=== PATIENT | female | born 1970 | race Caucasian/White ===

== ENCOUNTER 2023-02-03 08:28 | Observation (INO) | payer BC, OTHER ==
[2023-02-03 09:30] LABS: Absolute Neutrophil Ct (ANC) 10.67 x10^3/uL (1.4-6.9); BASOPHIL % 0.3 % (0.0-0.4); Basophil (Absolute #) 0.04 x10^3/uL (0-0.4); Eosinophil % 0.1 % (0.00-5.0); Eosinophil (Absolute #) 0.01 x10^3/uL (0-0.5); Hematocrit 45.3 % (35-47); Hemoglobin 14.6 g/dL (12.0-16.0); IMMATURE GRAN # 0.05 x10^3u/L (0.00-0.03); IMMATURE GRAN % 0.4 % (0.00-0.4); Lymphocyte (Absolute #) 1.08 x10^3/uL (1.0-4.6); Lymphocytes % 8.5 % (24.0-44.0); Mean Cell Volume 86.8 fL (78-100); Mean Corpuscular Hgb Concent. 32.2 g/dL (32-36); Mean Platelet Volume 9.4 fL (7.5-11.0); Monocyte (Absolute #) 0.88 x10^3/uL (0.0-1.3); Monocytes % 6.9 % (0.0-12.0); Neutrophil % 83.8 % (36.0-66.0); Platelet Count 268 x10^3/uL (150-450); Red Blood Count 5.22 x10^6/uL (4.1-5.4); Red Cell Distribution Width 13.2 % (11.5-14.0); White Blood Count 12.7 x10^3/uL (4.0-10.5)
[2023-02-03] MEDS: Sodium Chloride 0.9% 1000 ML 1,000 ML IV SCH (09:33)
--- NOTE | 2023-02-03 09:36 | ERPHSYRPT ---
- History of Present Illness Time Seen by Provider: 02/03/23 08:45 Source: patient Exam Limitations: no limitations Patient Subjective Stated Complaint: Pt states "About 230 this morning both sides of my face became numb and I felt like my tongue is swelling. I am not in pain, I am not havnig any problems breathing. My voice is a little hoarse as well." Triage Nursing Assessment: Pt presented alert and oriented X3, skin pwd. Pt ambulates with an upright steady gait. Pt able to speak in clear full sentences. PT stated she has a sore throat as well. Physician History: Patient is a 52-year-old female presents to the emergency department for evaluation of facial numbness. Symptoms started right around 230 this morning. Patient states her symptoms were associated with a sensation of tongue swelling. Patient states her symptoms have significantly improved since her arrival to our ED. No focal or lateralizing symptoms otherwise. No weakness. Patient admits to a slight sore throat and hoarse voice. No sick contacts. No fever. Symptoms are constant. Symptoms are moderate in intensity. No specific wor sening or improving factors. Patient otherwise feels well. Patient states she has no significant past medical history although she has not followed up with her primary care doctor in 4 years or so. at bedside. They voiced no other complaints or concerns at this time. Portions of this note were created with voice recognition technology. There may be grammatical, spelling, punctuation or sound alike errors Timing/Duration: today Severity: moderate Modifying Factors: Improves With: nothing Associated Symptoms: other (Sore throat) Allergies/Adverse Reactions: neomycin Allergy (Severe, Verified 02/03/23 08:42) inflamation Home Medications: No Reportable Medications [No Reported Medications] 02/03/23 [History] Hx Tetanus, Diphtheria Vaccination/Date Given: Yes Hx Influenza Vaccination/Date Given: No Hx Pneumococcal Vaccination/Date Given: No Immunizations Up to Date: No Travel Risk - International Travel Have you traveled outside of the country in past 3 weeks: No - Coronavirus Screening Are you exhibiting any of the following symptoms?: No Close contact with a COVID-19 positive Pt in past 14-21 Days: No - Vaccine Status Have you recieved a Covid-19 vaccination: No - Review of Systems Constitutional: No Symptoms, No Fever, No Chills Eyes: No Symptoms Ears, Nose, & Throat: No Symptoms Respiratory: No Symptoms, No Cough, No Dyspnea Cardiac: No Symptoms, No Chest Pain, No Edema, No Syncope Abdominal/Gastrointestinal: No Symptoms, No Abdominal Pain, No Nausea, No Vomiting, No Diarrhea Genitourinary Symptoms: No Symptoms, No Dysuria Musculoskeletal: No Symptoms, No Back Pain, No Neck Pain Skin: No Symptoms, No Rash Neurological: No Symptoms, No Dizziness, No Focal Weakness, No Sensory Changes Psychological: No Symptoms Endocrine: No Symptoms Hematologic/Lymphatic: No Symptoms Immunological/Allergic: No Symptoms All Other Systems: Reviewed and Negative - Past Medical History Pertinent Past Medical History: No - Past Surgical History Past Surgical History: Yes Other Surgical History: facial surgery. right knee - Social History Smoking Status: Never smoker Exposure to second hand smoke: No Drug Use: none Patient Lives Alone: No - Nursing Vital Signs Nursing Vital Signs: Initial Vital Signs Temperature 97.1 F 02/03/23 08:34 Pulse Rate 83 02/03/23 08:34 Respiratory Rate 20 02/03/23 08:34 Blood Pressure 203/93 02/03/23 08:34 O2 Sat by Pulse Oximetry 100 02/03/23 08:34 Pain Scale Pain Intensity 0 - Physical Exam General Appearance: no apparent distress, alert Eye Exam: PERRL/EOMI, eyes nml inspection Ears, Nose, Throat Exam: normal ENT inspection, TMs normal, pharynx normal, moist mucous membranes Neck Exam: normal inspection, non-tender, supple, full range of motion Respiratory Exam: normal breath sounds, lungs clear, airway intact, No re spiratory distress Cardiovascular Exam: regular rate/rhythm, normal heart sounds, normal peripheral pulses Gastrointestinal/Abdomen Exam: soft, normal bowel sounds, No tenderness, No mass Back Exam: normal inspection, normal range of motion, No CVA tenderness, No vertebral tenderness Extremity Exam: normal inspection, normal range of motion, pelvis stable Neurologic Exam: alert, oriented x 3, cooperative, normal mood/affect, nml cerebellar function, nml station & gait, sensation nml, No motor deficits Skin Exam: normal color, warm, dry, No rash Lymphatic Exam: No adenopathy SpO2 Interpretation: normal SpO2: 100 O2 Delivery: Room Air - Course Nursing assessment & vital signs reviewed: Yes - CT Exams Head CT Interpretation: Tele-radiologist Report (No acute intracranial pathology observed.) Ordered Tests: Active Orders 24 hr Category Date Time Status Production Cloth Cutter STAT Care 02/03/23 09:16 Active IV Insertion STAT Care 02/03/23 09:15 Active Pulse Oximetry (ED) STAT Care 02/03/23 09:15 Active HEAD WITHOUT CONTRAST [CT] Stat Exams 02/03/23 09:16 Completed CBC W DIFF Stat Lab 02/03/23 09:30 Completed CMP Stat Lab 02/03/23 09:20 Completed HCG QUALITATIVE, URINE Stat Lab 02/03/23 Ordered TROPONIN Q4H Lab 02/03/23 09:30 Completed TROPONIN Q4H Lab 02/03/23 13:30 Ordered TROPONIN Q4H Lab 02/03/23 17:30 Ordered UA W/RFX UR CULTURE Stat Lab 02/03/23 10:58 Ordered Transfer Order Routine Transfer 02/03/23 Ordered Medication Summary Generic Name Dose Route Start Last Admin Trade Name Freq PRN Reason Stop Dose Admin Sodium Chloride 1,000 mls @ 100 mls/hr 02/03/23 09:30 02/03/23 09:33 Sodium Chloride 0.9% 1000 Ml IV 03/05/23 09:29 100 mls/hr .Q10H TUTU Administration Discontinued Medications Generic Name Dose Route Start Last Admin Trade Name Freq PRN Reason Stop Dose Admin Aspirin 324 mg 02/03/23 10:31 02/03/23 10:55 Aspirin 81 Mg Tab.Chew PO 02/03/23 10:32 324 mg STAT ONE Administration Aspirin Confirm 02/03/23 10:54 Aspirin 81 Mg Tab.Chew Administered 02/03/23 10:55 Dose 324 mg .ROUTE .STK-MED ONE Lab/Rad Data: Laboratory Result Diagrams 02/03/23 09:30 02/03/23 09:20 Laboratory Results 02/03/23 02/03/23 02/03/23 Range/Units 09:35 09:35 09:30 WBC (4.0-10.5) x10^3/uL RBC (4.1-5.4) x10^6/uL Hgb (12.0-16.0) g/dL Hct (35-47) % MCV (78-100) fL MCH (26-32) pg MCHC (32-36) g/dL RDW (11.5-14.0) % Plt Count (150-450) x10^3/uL MPV (7.5-11.0) fL Gran % (36.0-66.0) % Immature Gran % (Auto) (0.00-0.4) % Nucleat RBC Rel Count (0.00-0.1) % Eos # (Auto) (0-0.5) x10^3/uL Immature Gran # (Auto) (0.00-0.03) x10^3u/L Absolute Lymphs (auto) (1.0-4.6) x10^3/uL Absolute Monos (auto) (0.0-1.3) x10^3/uL Absolute Nucleated RBC (0.00-0.01) x10^3u/L Lymphocytes % (24.0-44.0) % Monocytes % (0.0-12.0) % Eosinophils % (0.00-5.0) % Basophils % (0.0-0.4) % Absolute Granulocytes (1.4-6.9) x10^3/uL Basophils # (0-0.4) x10^3/uL Sodium (137-145) mmol/L Potassium (3.5-5.1) mmol/L Chloride (98-107) mmol/L Carbon Dioxide (22-30) mmol/L Anion Gap (5-15) MEQ/L BUN (7-17) mg/dL Creatinine (0.52-1.04) mg/dL Estimated GFR ML/MIN Glucose (74-106) mg/dL Calcium (8.4-10.2) mg/dL Total Bilirubin (0.2-1.3) mg/dL AST (14-36) U/L ALT (0-35) U/L Alkaline Phosphatase (38-126) U/L Troponin I < 0.012 (0.000-0.034) ng/mL Serum Total Protein (6.3-8.2) g/dL Albumin (3.5-5.0) g/dL Influenza Type A Ag NEGATIVE (NEGATIVE) Influenza Type B Ag NEGATIVE (NEGATIVE) RSV (PCR) NEGATIVE (NEGATIVE) SARS-CoV-2 (PCR) NEGATIVE (NEGATIVE) Group A Strep Antibody NOT DETECTED (NEGATIVE) 02/03/23 02/03/23 Range/Units 09:30 09:20 WBC 12.7 H (4.0-10.5) x10^3/uL RBC 5.22 (4.1-5.4) x10^6/uL Hgb 14.6 (12.0-16.0) g/dL Hct 45.3 (35-47) % MCV 86.8 (78-100) fL MCH 28.0 (26-32) pg MCHC 32.2 (32-36) g/dL RDW 13.2 (11.5-14.0) % Plt Count 268 (150-450) x10^3/uL MPV 9.4 (7.5-11.0) fL Gran % 83.8 H (36.0-66.0) % Immature Gran % (Auto) 0.4 (0.00-0.4) % Nucleat RBC Rel Count 0.0 (0.00-0.1) % Eos # (Auto) 0.01 (0-0.5) x10^3/uL Immature Gran # (Auto) 0.05 H (0.00-0.03) x10^3u/L Absolute Lymphs (auto) 1.08 (1.0-4.6) x10^3/uL Absolute Monos (auto) 0.88 (0.0-1.3) x10^3/uL Absolute Nucleated RBC 0.00 (0.00-0.01) x10^3u/L Lymphocytes % 8.5 L (24.0-44.0) % Monocytes % 6.9 (0.0-12.0) % Eosinophils % 0.1 (0.00-5.0) % Basophils % 0.3 (0.0-0.4) % Absolute Granulocytes 10.67 H (1.4-6.9) x10^3/uL Basophils # 0.04 (0-0.4) x10^3/uL Sodium 135 L (137-145) mmol/L Potassium 4.0 (3.5-5.1) mmol/L Chloride 102 (98-107) mmol/L Carbon Dioxide 26 (22-30) mmol/L Anion Gap 10.9 (5-15) MEQ/L BUN 12 (7-17) mg/dL Creatinine 0.52 (0.52-1.04) mg/dL Estimated GFR 111.7 ML/MIN Glucose 114 H (74-106) mg/dL Calcium 9.3 (8.4-10.2) mg/dL Total Bilirubin 0.70 (0.2-1.3) mg/dL AST 23 (14-36) U/L ALT 20 (0-35) U/L Alkaline Phosphatase 83 (38-126) U/L Troponin I (0.000-0.034) ng/mL Serum Total Protein 7.7 (6.3-8.2) g/dL Albumin 4.3 (3.5-5.0) g/dL Influenza Type A Ag (NEGATIVE) Influenza Type B Ag (NEGATIVE) RSV (PCR) (NEGATIVE) SARS-CoV-2 (PCR) (NEGATIVE) Group A Strep Antibody (NEGATIVE) - Progress Progress: improved Progress Note: Case discussed with teleneurologist at 10:28 AM. He advises a full dose aspirin and admission for MRI brain with and without contrast. 02/03/23 10:31 Case discussed with at 10:[address] Ferrari accepts admission to observation. 02/03/23 10:55 52-year-old female presents emergency department for evaluation of facial numbness that started at approximately 2 AM. Symptoms gradually improved upon arrival. Possible TIA however stroke cannot be ruled out unless patient receives MRI. Physical exam nonremarkable. Patient evaluated by teleneurologist who advises admission for MRI. Teleneurologist also advised full dose aspirin which was administered. Patient reassessed. Symptoms have significantly improved almost completely resolved. We will admit for further evaluation and treatment. Patient voices no other complaints or concerns at this time. CT head was negative for acute intracranial pathology. CBC CMP no significant abnormalities observed. COVID test negative. Patient complained of a sore throat, rapid strep negative. Initial troponin negative. Urinalysis not available. Patient received a full dose aspirin and is currently receiving IV fluids as well. Complexity of problems addressed is moderate acute complicated No critical care time Complexity of data reviewed and analyzed is extensive. Test ordered test reviewed. Results analyzed and correlated clinically with history and physical examination. Management discussed with teleneurologist and hospitalist. Teleneurologist advises admission, MRI with and without contrast of brain and full dose aspirin. Hospitalist accepts admission to observation Risk of complication and or risk of morbidity/mortality of patient management is high. Patient requires hospitalization for further evaluation and treatment. Portions of this note were created with voice recognition technology. There may be grammatical, spelling, punctuation or sound alike errors Vital stable. Time spent admit patient approximately 15 minutes. Plan of care established for shared decision making. 02/03/23 11:15 02/03/23 11:18 Counseled pt/family regarding: lab results, diagnosis, rad results - Departure Departure Disposition: Observation Clinical Impression: Facial numbness, Hypertension, Rule out stroke Condition: Stable Critical Care Time: No Referrals: DOCTOR,NO FAMILY [Primary Care Provider] - Follow up/PCP as directed
[2023-02-03 09:52] LABS: ALBUMIN 4.3 g/dL (3.5-5.0); ANION GAP 10.9 MEQ/L (5-15); BILIRUBIN,TOTAL 0.7 mg/dL (0.2-1.3); Calcium 9.3 mg/dL (8.4-10.2); Creatinine 1 0.52 mg/dL (0.52-1.04); EST GLOMERULAR FILTRATION RATE 111.7 ML/MIN; Total Protein 7.7 g/dL (6.3-8.2)
--- NOTE | 2023-02-03 10:01 | XRAY ---
CLINICAL HISTORY:facial numbness COMPARISON:None. TECHNIQUE:Axial plain CT scan of the brain was performed from the skull base to the high parietal region. FINDINGS: No evidence of territorial ischemic infarction. No intracerebral or extra axial hematoma. The visualized brain parenchyma shows normal appearance. No focal parenchymal abnormalities are demonstrated. Lake-white matter differentiation is maintained. No midline shifts or deformity. Normal size and configuration of the cerebral ventricles. Normal CT appearance of the posterior fossa structures namely the cerebellar hemispheres, brainstem and cerebellar peduncles. The osseous structures in the skull base are unremarkable. No definite calvarium fractures. Scanned paranasal sinuses are clear. IMPRESSION: No evidence of territorial ischemic infarction seen. No intracerebral or extra axial hematoma. No obvious space occupying lesion seen. [facility] ER was called at [phone] at 08:55 AM PIECER, 02/03/2023 and results were verbally communicated to Doug Gandhi Electronically Signed by: Regla Sullivan MD. (02/03/2023 09:57:30 EST)
[2023-02-03 10:18] LABS: INFLUENZA A NEGATIVE (NEGATIVE); INFLUENZA B NEGATIVE (NEGATIVE); RESPIRATORY SYNCTIAL VIRUS NEGATIVE (NEGATIVE); SARS-CoV-2 Xpert Express NEGATIVE (NEGATIVE)
[2023-02-03] MEDS ORDERED: BABY ASPIRIN 81 MG CHEW PO ONE (10:31)
[2023-02-03] MEDS ORDERED: BABY ASPIRIN 81 MG CHEW ONE (10:54)
[2023-02-03 11:16] VITALS: RESP 16
[2023-02-03 12:33] LABS: Appearance Clear (Clear); Bacteria None Seen /HPF (None Seen); Bilirubin Negative (Negative); Blood Small (Negative); Epithelial Cells None Seen /HPF (None Seen); Glucose, Urine Negative (Negative); Hyaline Casts NONE SEEN /LPF (0-2); Ketones Trace (Negative); Leukocyte Esterase Trace (Negative); Nitrite Negative (Negative); Ph 7.5 (4.6-8.0); Protein,Urine Dip Negative (Negative); Urobilinogen 0.2 mg/dL (0.2); WBC 0-2 /HPF (0-5)
[2023-02-03 12:37] LABS: ADD URINE CULTURE? YES (NO)
--- NOTE | 2023-02-03 13:01 | PCM.HP ---
History of Present Illness - Chief Complaint Chief Complaint: Facial numbness/paresthesias Date: 02/03/23 History of Present Illness: is a 52 year old female with no pmhx who presented to ED 02/03/23 with c/o of facial numbness. Patient reports that at approximately 2 a.m. she had awoken from sleeping and noticed her left side of her face was numb and tingling as well as a "tongue swelling" sensation. She associated this originally to sleeping on this side but numbness later spread to bilateral cheeks and mouth by 6 a.m. which prompted her to come to ED. Patient states she is now at her baseline, all symptoms have resolved. In ED, patient was afebrile and hypertensive, with spo2 @ 100% on RA. CT of the head w/o contrast negative for acute findings. Lab findings remarkable for WBC at 12.7, sodium at 135, ua mildly suspicious for UTI. Resp panel and strep negative. - Review of Systems Constitutional: No Symptoms Eyes: No Symptoms Ears, Nose, & Throat: No Symptoms Respiratory: No Symptoms Cardiac: No Symptoms Abdominal/Gastrointestinal: No Symptoms Genitourinary Symptoms: No Symptoms Musculoskeletal: No Symptoms Skin: No Symptoms Neurological: No Symptoms Psychological: No Symptoms Endocrine: No Symptoms Hematologic/Lymphatic: No Symptoms Immunological/Allergic: No Symptoms Medications & Allergies Home Medications: Home Medication List No Reportable Medications [No Reported Medications] 02/03/23 [History Confirmed 02/03/23] Allergies/Adverse Reactions: Allergies Allergy/AdvReac Type Severity Reaction Status Date / Time neomycin Allergy Severe inflamation Verified 02/03/23 08:42 - Past Medical History Past Medical History: No Musculoskelatal History: Other Comment: PINCHED NERVE RIGHT SHOULDER - Female History Are you now?: No - Past Surgical History Past Surgical History: Yes Musculskeletal Surgical Hx: Orthopedic Surgery Other Surgical History: facial surgery. right knee - Social History Smoking Status: Never smoker Exposure to second hand smoke: No Alcohol: None Drug Use: none - Physical Exam Vital Signs: Vital Signs - 24 hr Temp Pulse Resp BP BP Pulse Ox 02/03/23 11:28 98.0 F 84 16 194/91 98 02/03/23 11:22 100 02/03/23 11:00 80 177/87 02/03/23 10:57 188/105 99 02/03/23 10:56 100 02/03/23 10:30 172/90 02/03/23 10:15 82 16 178/90 98 02/03/23 10:00 72 13 177/84 99 02/03/23 09:55 74 18 171/84 100 02/03/23 09:29 98 02/03/23 09:15 68 175/84 02/03/23 08:34 97.1 F 83 20 203/93 100 General Appearance: no apparent distress Neurologic Exam: alert, oriented x 3, cooperative, mother helper II-XII nml as tested Eye Exam: PERRL/EOMI Ears, Nose, Throat Exam: normal ENT inspection Neck Exam: normal inspection Respiratory Exam: normal breath sounds, lungs clear Cardiovascular Exam: regular rate/rhythm, normal heart sounds Gastrointestinal/Abdomen Exam: soft, normal bowel sounds Pelvic Exam: not done Rectal Exam: deferred Back Exam: normal inspection Extremity Exam: normal inspection Skin Exam: normal color Lymphatic Exam: adenopathy Results - Labs Lab/Micro Results: Lab Results-Last 24 Hours 02/03/23 02/03/23 02/03/23 Range/Units 09:20 09:30 09:30 WBC 12.7 H (4.0-10.5) x10^3/uL RBC 5.22 (4.1-5.4) x10^6/uL Hgb 14.6 (12.0-16.0) g/dL Hct 45.3 (35-47) % MCV 86.8 (78-100) fL MCH 28.0 (26-32) pg MCHC 32.2 (32-36) g/dL RDW 13.2 (11.5-14.0) % Plt Count 268 (150-450) x10^3/uL MPV 9.4 (7.5-11.0) fL Gran % 83.8 H (36.0-66.0) % Immature Gran % (Auto) 0.4 (0.00-0.4) % Nucleat RBC Rel Count 0.0 (0.00-0.1) % Eos # (Auto) 0.01 (0-0.5) x10^3/uL Immature Gran # (Auto) 0.05 H (0.00-0.03) x10^3u/L Absolute Lymphs (auto) 1.08 (1.0-4.6) x10^3/uL Absolute Monos (auto) 0.88 (0.0-1.3) x10^3/uL Absolute Nucleated RBC 0.00 (0.00-0.01) x10^3u/L Lymphocytes % 8.5 L (24.0-44.0) % Monocytes % 6.9 (0.0-12.0) % Eosinophils % 0.1 (0.00-5.0) % Basophils % 0.3 (0.0-0.4) % Absolute Granulocytes 10.67 H (1.4-6.9) x10^3/uL Basophils # 0.04 (0-0.4) x10^3/uL Sodium 135 L (137-145) mmol/L Potassium 4.0 (3.5-5.1) mmol/L Chloride 102 (98-107) mmol/L Carbon Dioxide 26 (22-30) mmol/L Anion Gap 10.9 (5-15) MEQ/L BUN 12 (7-17) mg/dL Creatinine 0.52 (0.52-1.04) mg/dL Estimated GFR 111.7 ML/MIN Glucose 114 H (74-106) mg/dL Calcium 9.3 (8.4-10.2) mg/dL Total Bilirubin 0.70 (0.2-1.3) mg/dL AST 23 (14-36) U/L ALT 20 (0-35) U/L Alkaline Phosphatase 83 (38-126) U/L Troponin I < 0.012 (0.000-0.034) ng/mL Serum Total Protein 7.7 (6.3-8.2) g/dL Albumin 4.3 (3.5-5.0) g/dL Urine Color (Yellow) Urine Appearance (Clear) Urine pH (4.6-8.0) Ur Specific [place] (1.005-1.030) Urine Protein (Negative) Urine Glucose (UA) (Negative) mg/dL Urine Ketones (Negative) Urine Blood (Negative) Urine Nitrite (Negative) Urine Bilirubin (Negative) Urine Urobilinogen (0.2) mg/dL Ur Leukocyte Esterase (Negative) U Hyaline Cast (Auto) (0-2) /LPF Urine Microscopic RBC (0-5) /HPF Urine Microscopic WBC (0-5) /HPF Ur Epithelial Cells (None Seen) /HPF Urine Bacteria (None Seen) /HPF Urine Culture Reflexed (NO) Influenza Type A Ag (NEGATIVE) Influenza Type B Ag (NEGATIVE) RSV (PCR) (NEGATIVE) SARS-CoV-2 (PCR) (NEGATIVE) Group A Strep Antibody (NEGATIVE) 02/03/23 02/03/23 02/03/23 Range/Units 09:35 09:35 10:58 WBC (4.0-10.5) x10^3/uL RBC (4.1-5.4) x10^6/uL Hgb (12.0-16.0) g/dL Hct (35-47) % MCV (78-100) fL MCH (26-32) pg MCHC (32-36) g/dL RDW (11.5-14.0) % Plt Count (150-450) x10^3/uL MPV (7.5-11.0) fL Gran % (36.0-66.0) % Immature Gran % (Auto) (0.00-0.4) % Nucleat RBC Rel Count (0.00-0.1) % Eos # (Auto) (0-0.5) x10^3/uL Immature Gran # (Auto) (0.00-0.03) x10^3u/L Absolute Lymphs (auto) (1.0-4.6) x10^3/uL Absolute Monos (auto) (0.0-1.3) x10^3/uL Absolute Nucleated RBC (0.00-0.01) x10^3u/L Lymphocytes % (24.0-44.0) % Monocytes % (0.0-12.0) % Eosinophils % (0.00-5.0) % Basophils % (0.0-0.4) % Absolute Granulocytes (1.4-6.9) x10^3/uL Basophils # (0-0.4) x10^3/uL Sodium (137-145) mmol/L Potassium (3.5-5.1) mmol/L Chloride (98-107) mmol/L Carbon Dioxide (22-30) mmol/L Anion Gap (5-15) MEQ/L BUN (7-17) mg/dL Creatinine (0.52-1.04) mg/dL Estimated GFR ML/MIN Glucose (74-106) mg/dL Calcium (8.4-10.2) mg/dL Total Bilirubin (0.2-1.3) mg/dL AST (14-36) U/L ALT (0-35) U/L Alkaline Phosphatase (38-126) U/L Troponin I (0.000-0.034) ng/mL Serum Total Protein (6.3-8.2) g/dL Albumin (3.5-5.0) g/dL Urine Color Yellow (Yellow) Urine Appearance Clear (Clear) Urine pH 7.5 (4.6-8.0) Ur Specific [place] 1.010 (1.005-1.030) Urine Protein Negative (Negative) Urine Glucose (UA) Negative (Negative) mg/dL Urine Ketones Trace A (Negative) Urine Blood Small A (Negative) Urine Nitrite Negative (Negative) Urine Bilirubin Negative (Negative) Urine Urobilinogen 0.2 (0.2) mg/dL Ur Leukocyte Esterase Trace A (Negative) U Hyaline Cast (Auto) NONE SEEN (0-2) /LPF Urine Microscopic RBC 6-10 A (0-5) /HPF Urine Microscopic WBC 0-2 (0-5) /HPF Ur Epithelial Cells None Seen (None Seen) /HPF Urine Bacteria None Seen (None Seen) /HPF Urine Culture Reflexed YES (NO) Influenza Type A Ag NEGATIVE (NEGATIVE) Influenza Type B Ag NEGATIVE (NEGATIVE) RSV (PCR) NEGATIVE (NEGATIVE) SARS-CoV-2 (PCR) NEGATIVE (NEGATIVE) Group A Strep Antibody NOT DETECTED (NEGATIVE) - Radiology Impressions Radiology Exams & Impressions: Radiology Procedures Category Date Time Status HEAD WITHOUT CONTRAST [CT] Stat Exams 02/03/23 09:16 Completed MRI BRAIN W & W/O CONTRAST [MRI] Stat Exams 02/03/23 11:52 Ordered Assessment/Plan (1) Facial numbness Current Visit: Yes Status: Acute Assessment & Plan: -Neurology consulted with recs to obtain MRI and start ASA -MRI pending Code(s): R20.0 - ANESTHESIA OF SKIN (2) Hypertension Current Visit: Yes Status: Acute Assessment & Plan: -No history of HTN, will continue to monitor, add hydralazine prn for sbp >180 DBP > 100 Code(s): I10 - ESSENTIAL (PRIMARY) HYPERTENSION
[2023-02-03] MEDS ORDERED: Zofran 4 MG/2 ML VIAL IV PRN (13:05)
--- NOTE | 2023-02-03 15:14 | XRAY ---
CLINICAL HISTORY:facial numbness COMPARISON:CT brain dated 02/03/2023. TECHNIQUE:Different MRI pulse sequences were performed in different planes with and without intravenous contrast injection for the brain. Images were sent through PACs for interpretation. FINDINGS: Few tiny hyperintense foci are seen predominantly in the subcortical white matter of bilateral frontal lobes on T2 and FLAIR sequences. None of them shows true restricted diffusion or post-contrast enhancement. No intracerebral or extra-axial hematomas or masses. No infarctions could be depicted. Normal MRI appearance of the cerebellar parenchymal signals. Normal MRI appearance of the central gauthier matter aggregates. The ventricular system is unremarkable. Normal MRI appearance of different anatomical parts of the brain stem namely the midbrain, Nesha, medulla oblongata. Normal MRI appearance of the petrous temporal bones, brainstem, vestibule cochlear nerves, cerebellopontine angles, and pituitary gland with no definite masses. No shift of midline structures. Normal MRI appearance of orbital structures, both globes and optic nerves. Mucosal thickening is noted in ethmoid sinuses bilaterally suggestive of mild bilateral ethmoidal sinusitis. Left inferior turbinate hypertrophy is also noted. IMPRESSION: 1. Few tiny hyperintense foci are seen predominantly in the subcortical white matter of bilateral frontal lobes on T2 and FLAIR sequences, not showing any restricted diffusion or post-contrast enhancement. Possibilties include nonspecific white matter foci, chronic ischemic foci and small demyelinating lesions. Clinical correlation and follow-up are advised. 2. No acute infarction, hemorrhage, or mass lesion seen. 3. Mild ethmoid sinusitis with left inferior turbinate hypertrophy. Electronically Signed by: Regla Sullivan MD. (02/03/2023 15:10:11 EST)
[2023-02-03] MEDS ORDERED: APRESOLINE 20 MG/ML INJ IV PRN ×2 (16:02→16:44)
[2023-02-03] MEDS: TYLENOL 325 MG PO PRN (19:31)
--- NOTE | 2023-02-04 05:13 | PCM.DS ---
Discharge Summary Date of Admission: 02/03/23 11:22 Date of Discharge: 02/04/23 Admitting Physician: TARI SANZ MD Primary Care Provider: NO FAMILY DOCTOR Allergies Allergies neomycin Allergy (Severe, Verified 02/03/23 08:42) [facility] Summary - Hospital Course Hospital Course: is a 52 year old female with no pmhx who presented to ED 02/03/23 with c/o of facial numbness. Patient reports that at approximately 2 a.m. she had awo federica from sleeping and noticed her left side of her face was numb and tingling as well as a "tongue swelling" sensation. She associated this originally to sleeping on this side but numbness later spread to bilateral cheeks and mouth by 6 a.m. which prompted her to come to ED. Patient states she is now at her baseline, all symptoms have resolved. MRI showing . No acute infarction, hemorrhage, or mass lesion seen. Few tiny hyperintense foci are seen predominantly in the subcortical white matter of bilateral frontal lobes on T2 and FLAIR sequences, not showing any restricted diffusion or post-contrast enhancement. Possibilties include nonspecific white matter foci, chronic ischemic foci and small demyelinating lesions. Advised patient to follow up OP with neurology. WBC now normal. Patient is stable and requesting discharge. New Diagnosis: Facial numbness Follow Up: PCP/neurology Latest Assessment & Plan (1) Facial numbness Current Visit: Yes Status: Acute Assessment & Plan: -Neurology consulted with recs to obtain MRI and start ASA -MRI pending Code(s): R20.0 - ANESTHESIA OF SKIN (2) Hypertension Current Visit: Yes Status: Acute Assessment & Plan: -No history of HTN, will continue to monitor, add hydralazine prn for sbp >180 DBP > 100 # leukocytosis -no signs of infection -UA unremarkable 02/04: -WBC WNL I spent 35 minutes [id number] with the patient on the day of discharge performing discharge exam, discussing hospital stay and discharge instructions with patient and caregivers, preparation of discharge records, prescriptions & referral forms and addressing any questions/concerns the patient had as documented above. - Vitals & Intake/Output Vital Signs: Vital Signs Temperature 98.7 F 02/04/23 04:00 Pulse Rate 79 02/04/23 04:00 Respiratory Rate 16 02/04/23 04:00 Blood Pressure 149/73 02/04/23 04:00 O2 Sat by Pulse Oximetry 97 02/04/23 04:00 Intake & Output: Intake & Output 02/01/23 02/02/23 02/03/23 02/04/23 11:59 11:59 11:59 11:59 Intake Total 1300 Balance 1300 Weight 70.4 kg - Lab Result Diagrams: 02/04/23 05:16 02/04/23 05:16 Lab Results-Last 24 Hrs: Lab Results-Last 24 Hours 02/03/23 02/03/23 02/03/23 Range/Units 09:20 09:30 09:30 WBC 12.7 H (4.0-10.5) x10^3/uL RBC 5.22 (4.1-5.4) x10^6/uL Hgb 14.6 (12.0-16.0) g/dL Hct 45.3 (35-47) % MCV 86.8 (78-100) fL MCH 28.0 (26-32) pg MCHC 32.2 (32-36) g/dL RDW 13.2 (11.5-14.0) % Plt Count 268 (150-450) x10^3/uL MPV 9.4 (7.5-11.0) fL Gran % 83.8 H (36.0-66.0) % Immature Gran % (Auto) 0.4 (0.00-0.4) % Nucleat RBC Rel Count 0.0 (0.00-0.1) % Eos # (Auto) 0.01 (0-0.5) x10^3/uL Immature Gran # (Auto) 0.05 H (0.00-0.03) x10^3u/L Absolute Lymphs (auto) 1.08 (1.0-4.6) x10^3/uL Absolute Monos (auto) 0.88 (0.0-1.3) x10^3/uL Absolute Nucleated RBC 0.00 (0.00-0.01) x10^3u/L Lymphocytes % 8.5 L (24.0-44.0) % Monocytes % 6.9 (0.0-12.0) % Eosinophils % 0.1 (0.00-5.0) % Basophils % 0.3 (0.0-0.4) % Absolute Granulocytes 10.67 H (1.4-6.9) x10^3/uL Basophils # 0.04 (0-0.4) x10^3/uL Sodium 135 L (137-145) mmol/L Potassium 4.0 (3.5-5.1) mmol/L Chloride 102 (98-107) mmol/L Carbon Dioxide 26 (22-30) mmol/L Anion Gap 10.9 (5-15) MEQ/L BUN 12 (7-17) mg/dL Creatinine 0.52 (0.52-1.04) mg/dL Estimated GFR 111.7 ML/MIN Glucose 114 H (74-106) mg/dL Calcium 9.3 (8.4-10.2) mg/dL Total Bilirubin 0.70 (0.2-1.3) mg/dL AST 23 (14-36) U/L ALT 20 (0-35) U/L Alkaline Phosphatase 83 (38-126) U/L Troponin I < 0.012 (0.000-0.034) ng/mL Serum Total Protein 7.7 (6.3-8.2) g/dL Albumin 4.3 (3.5-5.0) g/dL Urine Color (Yellow) Urine Appearance (Clear) Urine pH (4.6-8.0) Ur Specific [place] (1.005-1.030) Urine Protein (Negative) Urine Glucose (UA) (Negative) mg/dL Urine Ketones (Negative) Urine Blood (Negative) Urine Nitrite (Negative) Urine Bilirubin (Negative) Urine Urobilinogen (0.2) mg/dL Ur Leukocyte Esterase (Negative) U Hyaline Cast (Auto) (0-2) /LPF Urine Microscopic RBC (0-5) /HPF Urine Microscopic WBC (0-5) /HPF Ur Epithelial Cells (None Seen) /HPF Urine Bacteria (None Seen) /HPF Urine Culture Reflexed (NO) Influenza Type A Ag (NEGATIVE) Influenza Type B Ag (NEGATIVE) RSV (PCR) (NEGATIVE) SARS-CoV-2 (PCR) (NEGATIVE) Group A Strep Antibody (NEGATIVE) 02/03/23 02/03/23 02/03/23 Range/Units 09:35 09:35 10:58 WBC (4.0-10.5) x10^3/uL RBC (4.1-5.4) x10^6/uL Hgb (12.0-16.0) g/dL Hct (35-47) % MCV (78-100) fL MCH (26-32) pg MCHC (32-36) g/dL RDW (11.5-14.0) % Plt Count (150-450) x10^3/uL MPV (7.5-11.0) fL Gran % (36.0-66.0) % Immature Gran % (Auto) (0.00-0.4) % Nucleat RBC Rel Count (0.00-0.1) % Eos # (Auto) (0-0.5) x10^3/uL Immature Gran # (Auto) (0.00-0.03) x10^3u/L Absolute Lymphs (auto) (1.0-4.6) x10^3/uL Absolute Monos (auto) (0.0-1.3) x10^3/uL Absolute Nucleated RBC (0.00-0.01) x10^3u/L Lymphocytes % (24.0-44.0) % Monocytes % (0.0-12.0) % Eosinophils % (0.00-5.0) % Basophils % (0.0-0.4) % Absolute Granulocytes (1.4-6.9) x10^3/uL Basophils # (0-0.4) x10^3/uL Sodium (137-145) mmol/L Potassium (3.5-5.1) mmol/L Chloride (98-107) mmol/L Carbon Dioxide (22-30) mmol/L Anion Gap (5-15) MEQ/L BUN (7-17) mg/dL Creatinine (0.52-1.04) mg/dL Estimated GFR ML/MIN Glucose (74-106) mg/dL Calcium (8.4-10.2) mg/dL Total Bilirubin (0.2-1.3) mg/dL AST (14-36) U/L ALT (0-35) U/L Alkaline Phosphatase (38-126) U/L Troponin I (0.000-0.034) ng/mL Serum Total Protein (6.3-8.2) g/dL Albumin (3.5-5.0) g/dL Urine Color Yellow (Yellow) Urine Appearance Clear (Clear) Urine pH 7.5 (4.6-8.0) Ur Specific [place] 1.010 (1.005-1.030) Urine Protein Negative (Negative) Urine Glucose (UA) Negative (Negative) mg/dL Urine Ketones Trace A (Negative) Urine Blood Small A (Negative) Urine Nitrite Negative (Negative) Urine Bilirubin Negative (Negative) Urine Urobilinogen 0.2 (0.2) mg/dL Ur Leukocyte Esterase Trace A (Negative) U Hyaline Cast (Auto) NONE SEEN (0-2) /LPF Urine Microscopic RBC 6-10 A (0-5) /HPF Urine Microscopic WBC 0-2 (0-5) /HPF Ur Epithelial Cells None Seen (None Seen) /HPF Urine Bacteria None Seen (None Seen) /HPF Urine Culture Reflexed YES (NO) Influenza Type A Ag NEGATIVE (NEGATIVE) Influenza Type B Ag NEGATIVE (NEGATIVE) RSV (PCR) NEGATIVE (NEGATIVE) SARS-CoV-2 (PCR) NEGATIVE (NEGATIVE) Group A Strep Antibody NOT DETECTED (NEGATIVE) 02/03/23 02/03/23 Range/Units 13:23 17:25 WBC (4.0-10.5) x10^3/uL RBC (4.1-5.4) x10^6/uL Hgb (12.0-16.0) g/dL Hct (35-47) % MCV (78-100) fL MCH (26-32) pg MCHC (32-36) g/dL RDW (11.5-14.0) % Plt Count (150-450) x10^3/uL MPV (7.5-11.0) fL Gran % (36.0-66.0) % Immature Gran % (Auto) (0.00-0.4) % Nucleat RBC Rel Count (0.00-0.1) % Eos # (Auto) (0-0.5) x10^3/uL Immature Gran # (Auto) (0.00-0.03) x10^3u/L Absolute Lymphs (auto) (1.0-4.6) x10^3/uL Absolute Monos (auto) (0.0-1.3) x10^3/uL Absolute Nucleated RBC (0.00-0.01) x10^3u/L Lymphocytes % (24.0-44.0) % Monocytes % (0.0-12.0) % Eosinophils % (0.00-5.0) % Basophils % (0.0-0.4) % Absolute Granulocytes (1.4-6.9) x10^3/uL Basophils # (0-0.4) x10^3/uL Sodium (137-145) mmol/L Potassium (3.5-5.1) mmol/L Chloride (98-107) mmol/L Carbon Dioxide (22-30) mmol/L Anion Gap (5-15) MEQ/L BUN (7-17) mg/dL Creatinine (0.52-1.04) mg/dL Estimated GFR ML/MIN Glucose (74-106) mg/dL Calcium (8.4-10.2) mg/dL Total Bilirubin (0.2-1.3) mg/dL AST (14-36) U/L ALT (0-35) U/L Alkaline Phosphatase (38-126) U/L Troponin I < 0.012 < 0.012 (0.000-0.034) ng/mL Serum Total Protein (6.3-8.2) g/dL Albumin (3.5-5.0) g/dL Urine Color (Yellow) Urine Appearance (Clear) Urine pH (4.6-8.0) Ur Specific [place] (1.005-1.030) Urine Protein (Negative) Urine Glucose (UA) (Negative) mg/dL Urine Ketones (Negative) Urine Blood (Negative) Urine Nitrite (Negative) Urine Bilirubin (Negative) Urine Urobilinogen (0.2) mg/dL Ur Leukocyte Esterase (Negative) U Hyaline Cast (Auto) (0-2) /LPF Urine Microscopic RBC (0-5) /HPF Urine Microscopic WBC (0-5) /HPF Ur Epithelial Cells (None Seen) /HPF Urine Bacteria (None Seen) /HPF Urine Culture Reflexed (NO) Influenza Type A Ag (NEGATIVE) Influenza Type B Ag (NEGATIVE) RSV (PCR) (NEGATIVE) SARS-CoV-2 (PCR) (NEGATIVE) Group A Strep Antibody (NEGATIVE) - Radiology Exams Ordered Rad Exams-Entire Visit: Radiology Procedures Category Date Time Status HEAD WITHOUT CONTRAST [CT] Stat Exams 02/03/23 09:16 Completed MRI BRAIN W & W/O CONTRAST [MRI] Stat Exams 02/03/23 11:52 Completed Discharge Exam General Appearance: no apparent distress Neurologic Exam: alert, oriented x 3, cooperative Eye Exam: PERRL Ears, Nose, Throat Exam: normal ENT inspection Neck Exam: normal inspection Respiratory Exam: normal breath sounds, lungs clear Cardiovascular Exam: regular rate/rhythm, normal heart sounds Gastrointestinal/Abdomen Exam: soft, normal bowel sounds Pelvic Exam: deferred Rectal Exam: deferred Back Exam: normal inspection Extremity Exam: normal inspection Skin Exam: normal color Final Diagnosis/Problem List - Final Discharge Diagnosis/Problem (1) Facial numbness Current Visit: Yes Status: Resolved Code(s): R20.0 - ANESTHESIA OF SKIN (2) Hypertension Current Visit: Yes Status: Resolved Code(s): I10 - ESSENTIAL (PRIMARY) HYPERTENSION - Discharge Disposition: Home, Self-Care Condition: Stable Prescriptions: No Action No Reportable Medications [No Reported Medications] Follow up with: DOCTOR,NO FAMILY [Primary Care Provider] - JEFF MADDOX DO [NON-STAFF PHY W/O PRIVILEGES] - 1 Week
[2023-02-04 05:31] LABS: Hematocrit 41.3 % (35-47); Hemoglobin 13.4 g/dL (12.0-16.0); Mean Cell Volume 86.4 fL (78-100); Mean Corpuscular Hgb Concent. 32.4 g/dL (32-36); Mean Platelet Volume 9.7 fL (7.5-11.0); Platelet Count 276 x10^3/uL (150-450); Red Blood Count 4.78 x10^6/uL (4.1-5.4); Red Cell Distribution Width 13.4 % (11.5-14.0); White Blood Count 6.9 x10^3/uL (4.0-10.5)
[2023-02-04] MEDS: TYLENOL 325 MG PO PRN ×2 (05:39→07:44)
[2023-02-04 05:58] LABS: ALBUMIN 3.9 g/dL (3.5-5.0); ANION GAP 11.7 MEQ/L (5-15); BILIRUBIN,TOTAL 0.9 mg/dL (0.2-1.3); Calcium 8.9 mg/dL (8.4-10.2); Creatinine 1 0.54 mg/dL (0.52-1.04); EST GLOMERULAR FILTRATION RATE 110.7 ML/MIN; Potassium 3.5 mmol/L (3.5-5.1); Total Protein 7.2 g/dL (6.3-8.2)
[2023-02-04 07:17] VITALS: TEMP 97.9
[2023-02-04] MEDS ORDERED: TYLENOL 325 MG PO PRN (08:01)
[2023-02-04] MEDS: Sodium Chloride 0.9% 1000 ML 1,000 ML IV SCH (08:53)
[2023-02-04 11:57] VITALS: BP 181/89; PULSE 80; O2SAT 98
== END 2023-02-04 11:40 | disposition home or self-care (01) ==
LOC: ED 08:28 → MED SURG 11:22
PROVIDERS: ADMIT Internal Medicine; ATTEND Internal Medicine
DX: R20.0 Anesthesia of skin (principal); I10 Essential (primary) hypertension; Z20.828 Contact with and (suspected) exposure to other viral communicable diseases
CPT/HCPCS: 0241U; 36000; 36415; 70450; 70553; 80053; 81001; 84484; 85025; 85027; 87086; 87651; 93005; 93041; 93268; 94760; 99285; G0378; Q3014; J2405; A9270-GY